=== PATIENT | male | born 2000 | race Two or more races ===

== ENCOUNTER 2018-08-18 12:20 | Emergency (ER) | payer MEDICAID ==
[~2018-08-18] VITALS: Ht 170.2 cm; Wt 65.8 kg
[2018-08-18 13:50] VITALS: BP 148/52
== END 2018-08-18 14:31 | disposition home or self-care (01) ==
LOC: ER 12:20
DX: S61.412D Laceration without foreign body of left hand, subsequent encounter (principal); X58.XXXD Exposure to other specified factors, subsequent encounter